=== PATIENT | male | born 1965 | race Caucasian/White ===

== ENCOUNTER → 2017-12-11 | Outpatient (CLI) | payer BC ==
[~2017-12-11] MED LIST: ACTOS 45 MG45 M1 PO; BASAGLAR K100 UNIT/1 SUBQ; BENADRYL25 MG PO; CENTRUM SILVER1 EAC2 PO; COZAAR 25 MG TA25 M1 PO; DULCOLAX10 MG RC; DULERA 100 MCG/13 GM IH; GOLYTELY4000 M1 PO; HUMALOG100 UNIT/2 SUBQ; IBUPROFEN 200200 M1 PO; INVOKANA100 MG PO; JENTADUETO 2.51 EAC2 PO; LANTUS SOL100 UNIT/1 SQ; LIPITOR 20 MG T20 M1 PO; NASONEX17 GM NS; PEPCID20 MG PO; PREDNISONE 20 M20 M1 PO; PREDNISONE 20 M20 MG PO; PRILOSEC 20 MG20 MG PO; QUINU10 PD PO; TESSALON PERLE100 MG PO; VENTOLIN HFA 1818 GM INH; VICTOZA0.6 MG/0.1 SQ
== END ==
LOC: M.RAD 10:54
DX: I11.9 Hypertensive heart disease without heart failure (principal); J92.9 Pleural plaque without asbestos; M25.78 Osteophyte, vertebrae; M41.85 Other forms of scoliosis, thoracolumbar region; E11.9 Type 2 diabetes mellitus without complications; G47.33 Obstructive sleep apnea (adult) (pediatric)

== ENCOUNTER → 2018-07-29 | Outpatient (CLI) | payer BC | LOC: M.CT 09:50 | DX: K40.90 Unilateral inguinal hernia, without obstruction or gangrene, not specified as recurrent (principal); N28.1 Cyst of kidney, acquired ==

== ENCOUNTER → 2018-11-01 | Outpatient (CLI) | payer BC | LOC: M.RAD 16:00 | DX: S89.81XA Other specified injuries of right lower leg, initial encounter (principal); M25.461 Effusion, right knee; W19.XXXA Unspecified fall, initial encounter; Y93.89 Activity, other specified; Y92.89 Other specified places as the place of occurrence of the external cause; Y99.8 Other external cause status ==